=== PATIENT | male | born 1945 ===

== ENCOUNTER 2017-12-09 08:46 | Day surgery (SDC) | payer MEDICAID, MEDICARE ==
--- NOTE | 2017-12-08 22:09 | Pre-Procedure Note/Attestation ---
Pre-Procedure Note/Attestation Complete Prior to Procedure Planned Procedure: right - Removal of cataract and placement of intraocular lens, right eye Procedure Narrative: Removal of cataract and placement of intraocular lens, right eye Indications for Procedure Pre-Operative Diagnosis: Combined cataract, right eye Attestation I attest that I discussed the nature of the procedure; its benefits; risks and complications; and alternatives (and the risks and benefits of such alternatives ), prior to the procedure, with the patient (or the patient's legal inside sales representative). I attest that, if there was a reasonable possibility of needing a blood transfusion, the patient (or the patient's legal inside sales representative) was given the [place] [employer] standardized written summary, pursuant to the Mike Nick Blood Safety Act ([place] Health and Safety Code # 1645, as amended). I attest that I re-evaluated the patient just prior to the surgery and that there has been no change in the patient's H&P, except as documented below: Kane Orozco MD Dec 08, 2017 22:09
[2017-12-09] VITALS (9 sets, daily range): BP systolic 128–153; BP diastolic 60–79
[~2017-12-09] VITALS: Ht 180.3 cm; Wt 72.6 kg
[~2017-12-09 08:46] MED LIST: Pred Forte 1% Opth Susp 1ml RIGHT EYE ONE
[2017-12-09] MEDS: Akten 3.5% 1ml Btl RIGHT EYE SCH ×3 (09:17→09:39)
[2017-12-09] MEDS: Ciprofloxacin Opth Soln 2.5ml RIGHT EYE SCH ×3 (09:17→09:39)
[2017-12-09] MEDS: Cyclopentolate 1% Opth Sol 2ml RIGHT EYE SCH ×3 (09:18→09:39)
[2017-12-09] MEDS: Phenylephrine 10% Opth Soln 5ml RIGHT EYE SCH ×3 (09:18→09:39)
[2017-12-09] MEDS: Tropicamide 1% Opth 15ml Soln RIGHT EYE SCH ×3 (09:18→09:39)
[2017-12-09] MEDS ORDERED: LISINOPRIL40 MG ORAL (09:53)
[2017-12-09] MEDS ORDERED: GLIPIZIDE10 MG PO (09:53)
[2017-12-09] MEDS ORDERED: GABAPENTIN100 MG ORAL (09:53)
[2017-12-09] MEDS ORDERED: OMEPRAZOLE20 M3 ORAL (09:53)
[2017-12-09] MEDS ORDERED: ATENOLOL-CHLOR1 EAC2 ORAL (09:53)
[2017-12-09] MEDS ORDERED: METFORMIN HCL500 M1 ORAL (09:53)
[2017-12-09] MEDS ORDERED: HYDRALAZINE HC100 MG ORAL (09:53)
[2017-12-09] MEDS ORDERED: AMLODIPINE BESY10 MG ORAL (09:53)
[2017-12-09] MEDS ORDERED: Midazolam 2mg/2ml Inj ONE (10:00)
[2017-12-09] MEDS ORDERED: fentaNYL 100 mcg/2 mL IV ONE (10:00)
[2017-12-09] MEDS ORDERED: NS Irrig 1000ml ONE (10:00)
[2017-12-09] MEDS ORDERED: LR 1000ml ONE (10:00)
[2017-12-09] MEDS ORDERED: Sterile Water Irrig 1000ml IRRIG ONE (10:00)
[2017-12-09] MEDS ORDERED: Propofol 200mg/20ml IV ONE (10:00)
[2017-12-09] MEDS ORDERED: Sodium Hyaluronate 10 mg/ml 0.85ml ONE (10:03)
[2017-12-09] MEDS ORDERED: Povidone-Iodine 5% opth solution ONE (10:03)
[2017-12-09] MEDS ORDERED: BSS 500ml btl ONE (11:00)
[2017-12-09] MEDS ORDERED: Carbachol 0.01% Op Soln 1.5ml vial ONE ×2 (11:12→13:33)
--- NOTE | 2017-12-09 11:37 | Discharge Instructions ---
Discharge Instructions Discharge Instructions Follow Up Orders Continue preop eye drops Wear shield at all times except to place eye drops Followup tomorrow in Dr Orozco's office For Congestive Heart Failure Reminder Report to your physician any weight gain of 5 pounds or more in one week. Kane Orozco MD Dec 09, 2017 11:37
--- NOTE | 2017-12-09 11:41 | Brief Operative Note ---
Immediate Post Operative Note Operative Note Pre-op Diagnosis: Combined cataract, right eye Procedure: Phaco PC IOL, OD Post-op Diagnosis: same as pre-op plus - miosis Surgeon: Dianne Orozco MD Package Car Driver: none Anesthesiologist: Dr Partida Anesthesia: local, MAC Specimen: none Complications: none Fluids: as noted in chart Estimated Blood Loss: minimal Implant(s) used?: Yes - shirley sn60 wf 21.5 Kane Orozco MD Dec 09, 2017 11:41
[2017-12-09] MEDS ORDERED: Tetracaine 0.5% Opth 4ml Soln ONE (13:36)
[2017-12-09] MEDS ORDERED: EPINEPHrine 1mg/1ml Amp ONE (13:36)
[2017-12-09] MEDS ORDERED: Lidocaine 2% MPF 5ml Vial INJ ONE (13:36)
[2017-12-09] MEDS ORDERED: Dexamethasone 4mg/ml vial ONE (13:36)
[2017-12-09] MEDS ORDERED: BSS 15ml BTL ONE (13:36)
[2017-12-09] MEDS ORDERED: Maxitrol Opth Oint 3.5gm ONE (13:36)
[2017-12-09] MEDS ORDERED: Lidocaine 1% MPF 10mg/ml 5ml ONE (13:36)
--- NOTE | 2017-12-10 08:45 | Operative Note - Dictated ---
DATE OF OPERATION: 12/09/2017 SURGEON: Kane Orozco M.D. DIGITAL PRODUCT MANAGER SURGEON: None. ANESTHESIOLOGIST: Dr. Partida. ANESTHESIA: Local/standby/monitored anesthesia care. PREOPERATIVE DIAGNOSIS: Combined cataract, right eye. POSTOPERATIVE DIAGNOSES: 1. Combined cataract, right eye. 2. Miosis, right eye. PROCEDURES: 1. Phacoemulsification of cataract, right eye. 2. Placement of posterior chamber intraocular lens, right eye (model [id number], power 21.5). 3. Use of Malyugin ring, right eye (7.0 mm). SPECIMENS: None. COMPLICATIONS: None. INDICATIONS FOR SURGERY: The patient has had painless progressive decrease in visual acuity in the right eye secondary to cataract. The patient understands the risk surgery including infection, bleeding, need for further surgery, loss of vision, no improvement in vision, loss of the eye, loss of life, glaucoma, retinal detachment and understands these risks. FINDINGS: The patient had a miotic pupil measuring approximately 4 mm. In addition, he had a +3 to 4 nuclear sclerotic cataract as well as a +2 to 3 cortical cataract. OPERATIVE NOTE: After informed consent was obtained, the patient was brought into the operating room, placed in supine position. Cardiac and respiratory monitors were attached. A time-out was performed and all criteria were met and everyone in the room agreed. The right eye was draped and prepped in sterile manner for ocular surgery. A lid speculum was placed in the eye. A 1% lidocaine preservative-free was injected at approximate 9 o'clock limbus. A conjunctiva peritomy from approximately 9 o'clock to 10 o'clock was made and dissected posteriorly. Hemostasis was maintained with bipolar cautery. A 2.6 mm limbal incision was made centered approximately 9 o'clock and 9:30 and dissected anteriorly. A paracentesis was made at approximately 12 o'clock and Shugarcaine was injected into the anterior chamber followed by Healon. The anterior chamber was then entered using a 2.6 mm keratome through the limbal incision. The Malyugin ring was then injected into the anterior chamber and hooked onto the pupillary margin at 4 points. An anterior capsulorrhexis was then performed. Hydrodissection and hydrodelineation of the lens then performed. The lens was then phacoemulsified using divide and conquer four-quadrant technique. Residual cortical material was then aspirated. The lens was taken from its package, placed into the cartridge and the tip of the cartridge was placed through the limbal incision, the lens was injected and centered nicely. There was noted to be a small rent in the anterior capsule, but it did not go pass the equator at all and this was noted to be at the approximate 8 o'clock position. It did not even go up to the equator. The lens was placed into the capsule and both the optic and both haptics were noted to be in the capsule and the lens was aligned approximately 11 o'clock to 5 o'clock meridian. Again, this was visually checked and both haptics and optic were well within the capsular bag. The Malyugin ring was then removed and Healon was then aspirated from the anterior chamber capsular bag. Miochol was then injected into the anterior chamber and the pupil came down nicely. Again, the optic and both haptics were checked visually and the pupillary margins were retracted and was noted that both haptics and the optic were still well within the capsular bag in the approximate 11 o'clock to 5 o'clock meridian. One 10-0 nylon interrupted suture was then placed. The knot was rotated and buried. Care was taken during the entire procedure not to touch the endothelium. The wound was checked and found to be watertight. One 10-0 nylon interrupted suture was placed and the knot was rotated and buried. The conjunctiva was closed with forceps cautery. The lid speculum and drapes were removed from the eye and one drop of diluted Betadine was applied to the surface of the eye and then irrigated. The lid speculum and drapes removed from the eye and drops of ciprofloxacin and Pred Forte were applied to the eye followed by Maxitrol ointment and then a shield. The patient tolerated the procedure well and left the operating room awake, alert in stable condition. Kane Orozco M.D. DR: NAI JOB#: [id number] CC:
== END 2017-12-09 12:35 | disposition home or self-care (01) ==
LOC: SUR 08:46
DX: H25.11 Age-related nuclear cataract, right eye (principal); H25.011 Cortical age-related cataract, right eye; H57.03 Miosis; I12.9 Hypertensive chronic kidney disease with stage 1 through stage 4 chronic kidney disease, or unspecified chronic kidney disease; E11.22 Type 2 diabetes mellitus with diabetic chronic kidney disease; N18.2 Chronic kidney disease, stage 2 (mild)
CPT/HCPCS: 66982; 82962; J0171; J1100; J2250; J2704; J3010; J7120; V2632; 94003; 94150